=== PATIENT | female | born 1995 | race Caucasian/White ===

== ENCOUNTER → 2017-11-21 | Outpatient (CLI) | payer BC ==
[~2017-11-21] MED LIST: SINCALIDE (KINEVAC) 5 MCG ONE
== END | disposition home or self-care (01) ==
LOC: PETCFH 08:26
PROVIDERS: ATTEND Physician Assistant Medical
DX: K76.0 Fatty (change of) liver, not elsewhere classified (principal); G43.909 Migraine, unspecified, not intractable, without status migrainosus
CPT/HCPCS: 78227; A9537; J2805